=== PATIENT | female | born 1955 | race Caucasian/White ===

== ENCOUNTER 2023-05-12 09:11 | Outpatient (CLI) | payer OTHER ==
[2023-05-12 10:00] LABS: HEMATOCRIT 40.5 % (36.0-45.00); HEMOGLOBIN 13.5 g/dL (12.0-15.00); MEAN CORPUSCULAR HEMOGLOBIN 27.4 pg (27.00-32.0); MEAN CORPUSCULAR HGB CONC 33.4 g/dl (32.0-36.0); PLATELET COUNT 350 K/uL (150-450); RED BLOOD COUNT 4.94 M/uL (4.00-6.00); RED CELL DISTRIBUTION WIDTH 13.6 % (11.5-14.5)
[2023-05-12 10:23] LABS: PH,URINE 5.5 (5.0-8.0); URINE APPEARANCE Clear; URINE BILIRRUBIN Negative (NEGATIVE); URINE BLOOD Negative; URINE COLOR Yellow; URINE GLUCOSE Negative (NEGATIVE); URINE LEUKOCYTE Negative; URINE NITRATE Negative; URINE PROTEIN Negative (NEGATIVE); URINE UROBILINOGEN 0.2 E.U./dl
[2023-05-12 10:24] LABS: URINE BACTERIA 8.8 uL (0.0-1933); URINE EPITHELIAL CELLS 13.8 uL (0.0-38.8); URINE RBC 7.3 uL (0.0-20.8); URINE WBC 6.4 uL (0.0-23.2)
[2023-05-12 10:34] LABS: ALBUMIN 4.2 gm/dL (3.4-5.0); BILIRUBIN TOTAL 0.62 mg/dL (0.3-1.2); CALCIUM 9.9 mg/dL (8.5-10.1); CHOL HDL RATIO 3.6 (0-5.0); CREATININE SERUM 0.67 mg/dL (0.55-1.02); GFR 87.79; GLOBULINA 2.9 G/DL (2.4-3.5); MAGNESIUM 2.4 mg/dL (1.8-2.4); POTASSIUM 4.01 mEq/L (3.5-5.1); T4 TOTAL 8.6 UG/DL (4.8-13.9); TOTAL PROTEIN 7.1 gm/dL (6.4-8.2)
== END 2023-05-12 09:12 | disposition home or self-care (01) ==
LOC: LAB 09:11
PROVIDERS: ATTEND Orthopaedic Surgery
DX: E56.1 Deficiency of vitamin K (principal); E55.9 Vitamin D deficiency, unspecified; M85.9 Disorder of bone density and structure, unspecified

== ENCOUNTER → 2024-07-12 08:43 | Outpatient (CLI) | payer OTHER ==
[2024-07-12 10:32] LABS: ALBUMIN 4.2 gm/dL (3.4-5.0); BILIRUBIN TOTAL 0.85 mg/dL (0.3-1.2); CALCIUM 9.8 mg/dL (8.5-10.1); CREATININE SERUM 0.76 mg/dL (0.55-1.02); GFR 75.68; GLOBULINA 3.2 G/DL (2.4-3.5); MAGNESIUM 2.4 mg/dL (1.8-2.4); POTASSIUM 4.05 mEq/L (3.5-5.1); TOTAL PROTEIN 7.4 gm/dL (6.4-8.2)
== END | disposition home or self-care (01) ==
LOC: LAB 08:43
PROVIDERS: ATTEND Orthopaedic Surgery
DX: E55.9 Vitamin D deficiency, unspecified (principal); M85.9 Disorder of bone density and structure, unspecified; E56.1 Deficiency of vitamin K; E21.3 Hyperparathyroidism, unspecified; E88.89 Other specified metabolic disorders; M81.8 Other osteoporosis without current pathological fracture

== ENCOUNTER 2024-07-12 09:46 | Outpatient (CLI) | payer OTHER | END 2024-07-12 09:53 | disposition home or self-care (01) | LOC: RAD 09:46 | PROVIDERS: ATTEND Orthopaedic Surgery | DX: J45.909 Unspecified asthma, uncomplicated (principal); M79.642 Pain in left hand; M18.12 Unilateral primary osteoarthritis of first carpometacarpal joint, left hand ==

== ENCOUNTER 2024-07-28 12:41 | Outpatient (CLI) | payer OTHER | END 2024-07-28 12:42 | disposition home or self-care (01) | LOC: NUCLEAR 12:41 | PROVIDERS: ATTEND Orthopaedic Surgery | DX: M81.0 Age-related osteoporosis without current pathological fracture (principal) ==